=== PATIENT | male | born 1935 | race Caucasian/White ===

== ENCOUNTER 2018-12-04 16:38 | Emergency (ER) | payer OTHER ==
[~2018-12-04] VITALS: Ht 165.1 cm; Wt 74.8 kg
[2018-12-04 16:55] LABS: URINE BILIRUBIN NEGATIVE (Negative); URINE BLOOD NEGATIVE (Negative); URINE CLARITY CLEAR; URINE COLOR YELLOW; URINE GLUCOSE-RANDOM* NEGATIVE (Negative); URINE KETONES NEGATIVE (Negative); URINE LEUKOCYTES-REFLEX NEGATIVE (Negative); URINE NITRITE-REFLEX NEGATIVE (Negative); URINE PROTEIN (DIPSTICK) NEGATIVE (Negative); URINE SPECIFIC GRAVITY 1.015 (1.005-1.035)
[2018-12-04 17:18] LABS: ABSOLUTE NEUTROPHILS 3.8 thou/uL (1.4-8.2); BASOPHILS 0.5 % (0.0-2.0); EOSINOPHILS 3.4 % (0.0-3.0); HEMATOCRIT 35.4 % (42.0-52.0); HEMOGLOBIN 12.5 gm/dL (14.0-18.0); LYMPHOCYTES 24.2 % (24.0-44.0); MCH 32.9 pg (26.0-34.0); MCHC 35.5 g/dL (28.0-37.0); MCV 92.6 fL (80.0-100.0); MONOCYTES 5.2 % (1.0-8.0); PLATELET COUNT 150 thou/uL (150-400); POLYS 66.7 % (36.0-66.0); RBC 3.82 mil/uL (4.50-6.00); RDW 13.8 % (10.5-14.5); WBC 5.7 thou/uL (4.0-11.0)
[2018-12-04 17:28] LABS: CALCIUM 8.9 mg/dL (8.5-10.1); CREATININE 1.2 mg/dL (0.7-1.3); POTASSIUM 4.1 mmol/L (3.5-5.1)
[2018-12-04 17:35] LABS: ALBUMIN 3.8 g/dL (3.4-5.0); TOTAL BILIRUBIN 1.9 mg/dL (<0.1-1.0); TOTAL PROTEIN 6.5 g/dL (6.4-8.2)
[2018-12-04] MEDS ORDERED: ASPIR 8181 MG PO (17:53)
[2018-12-04] MEDS ORDERED: ALPRAZOLAM 0.50.5 M1 PO (17:54)
[2018-12-04] MEDS ORDERED: NORVASC5 MG PO (17:54)
[2018-12-04] MEDS ORDERED: XALATAN2.5 ML OPHTHALMIC (17:54)
[2018-12-04] MEDS ORDERED: ACCUPRIL40 MG PO (17:55)
[2018-12-04] MEDS ORDERED: PRAVACHOL40 MG PO (17:55)
[2018-12-04] MEDS ORDERED: OMEPRAZOLE 20 M20 M1 PO (17:55)
[2018-12-04] MEDS ORDERED: COREG25 MG PO (18:36)
[2018-12-04] MEDS ORDERED: ZOLOFT50 MG PO (18:38)
[2018-12-04] MEDS ORDERED: SENNA-S TABLET1 EACH PO (18:38)
[2018-12-04] MEDS ORDERED: SIMETHICONE125 M1 PO (18:39)
[2018-12-04] MEDS ORDERED: TRAZODONE HCL50 MG PO (18:39)
[2018-12-04] MEDS ORDERED: VITAMIN B-12500 MCG PO (18:40)
[2018-12-04] MEDS ORDERED: VITAMIN D31000 UNIT PO (18:41)
[2018-12-05 15:01] VITALS: BP 150/76
== END 2018-12-05 13:37 ==
LOC: ER 16:38
PROVIDERS: Physician Assistant
DX: F03.90 Unspecified dementia, unspecified severity, without behavioral disturbance, psychotic disturbance, mood disturbance, and anxiety (principal); Z88.1 Allergy status to other antibiotic agents; Z88.6 Allergy status to analgesic agent